=== PATIENT | male | born 1995 | race Two or more races ===

== ENCOUNTER 2020-12-03 09:06 | Emergency (ER) | payer OTHER, SELFPAY ==
--- NOTE | ~2020-12-03 | CT_ITS ---
EXAMINATION: CT ABDOMEN AND PELVIS WITHOUT CONTRAST CLINICAL INFORMATION: Right abdominal and flank pain. COMPARISON: None TECHNIQUE: Multidetector volumetric imaging was performed from the superior aspect of the liver through the pubic symphysis. Sagittal and coronal reformatted images were obtained on the technologist's workstation. No oral or intravenous contrast. This CT examination was performed using dose optimization techniques as appropriate, variously including the following: *Automated exposure control *Adjustment of mA and/or kV according to patient size (this includes techniques or standardized protocols for targeted exams where dose is matched to indication/reason for exam; i.e. extremities or head) *Use of iterative reconstruction technique DLP: 913 mGy-cm FINDINGS: LUNG BASES: Fine linear scar versus disc atelectasis left lateral base. No airspace consolidation or effusion. LIVER, GALLBLADDER, AND BILIARY TREE: The liver is normal in size, shape, and attenuation. No focal hepatic lesion or biliary ductal dilatation is present. The gallbladder is unremarkable with no evidence of radiopaque gallstones, gallbladder wall thickening, or obvious pericholecystic inflammatory changes. PANCREAS: Unremarkable. SPLEEN: Unremarkable. ADRENAL GLANDS: Unremarkable. KIDNEYS AND URETERS: There is borderline fullness right collecting system compared with the left. There is a punctate calculus in region of distal right ureter just proximal to the bladder under 3 mm (series 4 image 652; series 3, image 112). There are no other urinary tract calculi. No perinephric stranding. No left hydronephrosis or hydroureter or calculi. BLADDER: Unremarkable. GASTROINTESTINAL TRACT: No bowel obstruction or inflammatory changes in the bowel. There is moderate stool in the right colon. There is no ascites or fluid collection. Small linear calcification is noted medial to the cecum which may represent appendicoliths in an otherwise nondistended appendix, or benign dystrophic mesenteric calcifications related to prior appendectomy. No inflammatory changes around cecum or distal ileum. ABDOMINAL WALL: No significant hernia is appreciated. LYMPH NODES: 2 small nodes mid right mesentery series 3 image 51, larger 1 cm short axis. No retroperitoneal or pelvic lymphadenopathy. VASCULAR: Unremarkable. PELVIC VISCERA: Unremarkable. OSSEOUS STRUCTURES: Unremarkable. CT/CT abdomen pelvis wo con IMPRESSION: 1. Borderline fullness right renal collecting system. Suspect punctate distal right ureteral calculus under 3 mm just proximal to the bladder. No perinephric stranding. 2. No bowel obstruction or intestinal inflammatory changes. No ascites or fluid collection.
[2020-12-03 10:10] VITALS: BP 100/68; PULSE 67; RESP 17; TEMP 36.6; O2SAT 99; BMI 42.0
[2020-12-03 10:28] LABS: MANUAL DIFF FLAG NO
[2020-12-03 10:30] LABS: Basophils Absolute Auto 0.1 X10*3/uL (0.0-0.2); Basophils Percent Auto 0.6 % (0-2); Eosinophils Absolute Auto 0.1 X10*3/uL (0.0-0.4); Eosinophils Percent Auto 0.7 % (0-4); Hematocrit 43.7 % (42-52); Hemoglobin 14.4 g/dl (14.0-18.0); Imm Gran Abs Auto 0.07 X10*3/uL (0.00-0.03); Imm Gran Pct Auto 0.5 % (0.0-0.4); Lymphocytes Absolute Auto 1.5 X10*3/uL (1.2-4.9); Lymphocytes Percent Auto 11.3 % (20-40); Mean Corpuscular Hemoglobin 28.1 pg (27.0-33.0); Mean Corpuscular Volume 85.4 fL (80-98); Monocytes Absolute Auto 0.5 X10*3/uL (0.1-1.2); Monocytes Percent Auto 3.5 % (2-11); Neutrophils Absolute Auto 11.1 X10*3/uL (2.0-8.3); Neutrophils Percent Auto 83.4 % (45-73); Platelet Count 372 X10*3/uL (160-400); Red Blood Count 5.12 X10*6/uL (4.60-5.80); Red Cell Distribution Width 12.5 % (11.0-16.0); White Blood Count 13.3 X10*3/uL (4.8-10.8)
[2020-12-03 10:40] LABS: Glucose Urine UA NEG (NEG); Leukocyte Esterase Urine NEG (NEG); Nitrite Urine NEG (NEG); PH 5.5 (5.0-8.0); Specific Gravity - Urine >= 1.030 (1.005-1.025); Urine Blood 3+ (NEG); Urine Ketones 5 MG/DL (NEG); Urine Protein TRACE MG/DL (NEG-TRACE)
[2020-12-03 10:45] LABS: Appearance Urine CLOUDY; Color Urine YELLOW
--- NOTE | 2020-12-03 10:52 | ED_ITS ---
HPI - Abdominal Pain General Chief Complaint: Abdominal Pain Stated Complaint: abdominal pain Time Seen by Provider: 12/03/20 10:49 Source: patient Mode of arrival: ambulatory Limitations: no limitations History of Present Illness HPI narrative: 25-year-old male who denies any past medical/surgical history presenting with complaint of states he has had right flank pain since yesterday sharp ends sharp and stabbing like started after he was training for having a bowel movement pain subsided slightly and this morning pain got worse and now is radiating to the right side abdomen and groin area. He went to urgent care but appear uncomfortable was sent here for further evaluation. Admits to nausea but no vomiting or diarrhea, no fever, no recent illness or travel. Denies any prior episodes of similar pain. He did tell the triage nurse that he was having pain radiation to the right groin and testicle region but there is no testicular pain. MD elicited complaint: abdominal pain and flank pain Pertinent past history: none Onset (ago): day(s) Pain Consistency: constant Location: R flank Severity: moderate Quality: stabbing and aching Radiation: other (Right-sided abdomen/groin area) Exacerbating factors: nothing Relieving factors: nothing Associated symptoms: nausea Related Data Previous Rx's Medication Instructions Recorded ibuprofen 800 mg PO Q8H PRN #20 tab 12/03/20 oxycodone 5 mg PO Q8H PRN 3 Days #10 tab 12/03/20 Allergies Allergy/AdvReac Type Severity Reaction Status Date / Time No Known Allergies Allergy Verified 12/03/20 10:54 Review of Systems Review of Systems Constitutional: No Weight loss, No Fever, No Chills, No Night Sweats, No Fatigue, No Malaise ENT/Mouth: No Hearing loss, No Ear Pain, No Nasal Congestion, No Sinus Pain, No Hoarseness, No sore throat, No Rhinorrhea, No Swallowing Difficulty Eyes: No Eye Pain, No Swelling, No Redness, No Foreign Body, No Discharge, No Vision Changes Cardiovascular: No Chest Pain, No SOB, No Dyspnea on Exertion, No Orthopnea, No Edema, No Palpitations Respiratory: No Cough, No Sputum, No Wheezing, No Smoke Exposure, No Dyspnea Gastrointestinal: As noted per HPI, No Hematochezia, No Melena Genitourinary: No Dysuria, No Urinary Frequency, No Hematuria, No Urinary Incontinence, No Urgency, No Flank Pain, No Urinary Flow Changes, No Hesitancy Musculoskeletal: No joint pain, No Myalgias, No Joint Swelling Skin: No Skin Lesions, No rash Neuro: No Weakness, No Numbness, No Paresthesias, No Loss of Consciousness, No Dizziness, No Headache Psych: No Social Issues Heme/Lymph: No Bruising, No Bleeding,No Lymphadenopathy Endocrine: No Polyuria, No Polydipsia, No Temperature Intolerance Yes all other systems are reviewed and are negative Physical Exam Vital Signs: Vital Signs: Last Vital Signs Temp 97.7 F 12/03/20 13:29 Pulse 56 12/03/20 13:29 Resp 18 12/03/20 13:29 BP 105/45 L 12/03/20 13:29 Pulse Ox 97 12/03/20 13:29 Body Mass Index 42.0 Reviewed Const: General: cooperative and in distress (Appears in pain) mild; No intoxicated appearing Nutritional Appearance: obese Orientation/consciousness: patient oriented x3 HENMT: Head: Yes normal to inspection Ears: hearing grossly normal bilaterally Eyes: General: appearance normal, both eyes and all related structures Visual Torres: normal visual torres by confrontation Neck: Neck: Yes normal visual inspection, No positive Brudzinski's sign, No positive Kernig's sign and No tender Thyroid: Thyroid normal Chest: Chest palpation & inspection: normal inspection of the chest Resp: Effort & Inspection: normal respiratory effort Auscultation: clear to auscultation bilaterally Cardio: Jugular venous distension: no JVD Rhythm: regular rhythm Heart sounds: S1 normal heart sound present and S2 normal heart sound present GI: Inspection: Yes normal to inspection Palpation (GI): Soft to palpation, Tenderness to palpation present (GI) (Mildly on the right lower quadrant region) and no guarding Percussion: Yes normal to percussion Auscultation: normal bowel sounds : General: Yes CVA tenderness on the right and diffuse Skin: General skin exam: no rashes or lesions noted Neuro: General: patient oriented x3 Extrem: General: Yes normal to inspection Course Reevaluation(s) Reevaluation #1: 1055 Labs in by triage nurse with leukocytosis with routine UA positive RBC otherwise not infected AP an exam consistent with renal calculi given his large body habit us will get dry CT of his abdomen for better visualization of his kidneys and rule out obstructive pathology. Does appear relatively uncomfortable will treat with IV fluids, antiemetics and Toradol. Reevaluation #2: Findings consistent with 3 mm stone at the distal ureter just proximal to the bladder without over hydro. Had episode of breakthrough pain with Toradol given hydromorphone 0.5 mg did very well with this observed for 1 hour after and has not had any pain. Will discharge home with ibuprofen and oxycodone for breakthrough pain with follow-up with Urology. Mass pat reviewed no concerning pattern. MDM - Abdominal Pain Differential Diagnosis Differential diagnosis: Likely abdominal pain, calculus of kidney and renal coli c; Unlikely aortic dissection, acute appendicitis, bowel perforation, consti pation, diverticulitis, gastroenteritis, gastritis, pancreatitis, peptic ulcer disease and small bowel obstruction Lab Data Result diagrams: 12/03/20 10:24 12/03/20 10:24 Labs: Lab Results 12/03/20 12/03/20 12/03/20 Range/Units 10:24 10:24 10:24 WBC 13.3 H (4.8-10.8) X10*3/uL RBC 5.12 (4.60-5.80) X10*6/uL Hgb 14.4 (14.0-18.0) g/dl Hct 43.7 (42-52) % MCV 85.4 (80-98) fL MCH 28.1 (27.0-33.0) pg MCHC 33.0 (31.0-36.0) g/dl RDW 12.5 (11.0-16.0) % Plt Count 372 (160-400) X10*3/uL MPV 10.0 (9.4-12.4) fL Immature Gran % (Auto) 0.5 H (0.0-0.4) % Neut % (Auto) 83.4 H (45-73) % Lymph % (Auto) 11.3 L (20-40) % [place] % (Auto) 3.5 (2-11) % Eos % (Auto) 0.7 (0-4) % Baso % (Auto) 0.6 (0-2) % Lymph # (Auto) 1.5 (1.2-4.9) X10*3/uL [place] # (Auto) 0.5 (0.1-1.2) X10*3/uL Eos # (Auto) 0.1 (0.0-0.4) X10*3/uL Baso # (Auto) 0.1 (0.0-0.2) X10*3/uL Abs Immat Gran (auto) 0.07 H (0.00-0.03) X10*3/uL Absolute Neuts (auto) 11.1 H (2.0-8.3) X10*3/uL Absolute Nucleated RBC 0.000 (0.0-0.012) X10*3/uL Nucleated RBC % (auto) 0.0 (0.0-0.2) /100WBC Hold Blue Top SEE NOTE Sodium 141 (135-145) mmol/L Potassium 4.5 (3.3-5.1) mmol/L Chloride 105 (96-108) mmol/L Carbon Dioxide 27 (22-29) mmol/L Anion Gap 14 (12-20) BUN 13 (9-16) mg/dL Creatinine 0.92 (0.5-1.4) mg/dL Estim Creat Clear Calc 131.5 Estimated GFR > 60 Random Glucose 112 (60-115) mg/dL Calcium 9.9 (8.4-10.2) mg/dL Total Bilirubin 0.3 (0.0-1.0) mg/dL Direct Bilirubin 0.2 (0.0-0.5) mg/dL AST 18 (5-37) U/L ALT 26 (0-40) U/L Alkaline Phosphatase 70 (39-117) U/L Total Protein 8.0 (6.5-8.0) g/dL Albumin 5.0 (3.5-5.0) g/dL Urine Color Urine Appearance Urine pH (5.0-8.0) Ur Specific Burnham (1.005-1.025) Urine Protein (NEG-TRACE) MG/DL Urine Glucose (UA) (NEG) MG/DL Urine Ketones (NEG) MG/DL Urine Blood (NEG) Urine Nitrite (NEG) Ur Leukocyte Esterase (NEG) Urine RBC (0) /HPF Urine WBC (0-4) /HPF Ur Squamous Epith Cells /LPF Calcium Oxalate Crystal /LPF Amorphous Sediment /LPF Urine Bacteria /LPF Urine Mucus /LPF 12/03/20 Range/Units 10:24 WBC (4.8-10.8) X10*3/uL RBC (4.60-5.80) X10*6/uL Hgb (14.0-18.0) g/dl Hct (42-52) % MCV (80-98) fL MCH (27.0-33.0) pg MCHC (31.0-36.0) g/dl RDW (11.0-16.0) % Plt Count (160-400) X10*3/uL MPV (9.4-12.4) fL Immature Gran % (Auto) (0.0-0.4) % Neut % (Auto) (45-73) % Lymph % (Auto) (20-40) % [place] % (Auto) (2-11) % Eos % (Auto) (0-4) % Baso % (Auto) (0-2) % Lymph # (Auto) (1.2-4.9) X10*3/uL [place] # (Auto) (0.1-1.2) X10*3/uL Eos # (Auto) (0.0-0.4) X10*3/uL Baso # (Auto) (0.0-0.2) X10*3/uL Abs Immat Gran (auto) (0.00-0.03) X10*3/uL Absolute Neuts (auto) (2.0-8.3) X10*3/uL Absolute Nucleated RBC (0.0-0.012) X10*3/uL Nucleated RBC % (auto) (0.0-0.2) /100WBC Hold Blue Top Sodium (135-145) mmol/L Potassium (3.3-5.1) mmol/L Chloride (96-108) mmol/L Carbon Dioxide (22-29) mmol/L Anion Gap (12-20) BUN (9-16) mg/dL Creatinine (0.5-1.4) mg/dL Estim Creat Clear Calc Estimated GFR Random Glucose (60-115) mg/dL Calcium (8.4-10.2) mg/dL Total Bilirubin (0.0-1.0) mg/dL Direct Bilirubin (0.0-0.5) mg/dL AST (5-37) U/L ALT (0-40) U/L Alkaline Phosphatase (39-117) U/L Total Protein (6.5-8.0) g/dL Albumin (3.5-5.0) g/dL Urine Color YELLOW Urine Appearance CLOUDY Urine pH 5.5 (5.0-8.0) Ur Specific Burnham >= 1.030 H (1.005-1.025) Urine Protein TRACE (NEG-TRACE) MG/DL Urine Glucose (UA) NEG (NEG) MG/DL Urine Ketones 5 (NEG) MG/DL Urine Blood 3+ H (NEG) Urine Nitrite NEG (NEG) Ur Leukocyte Esterase NEG (NEG) Urine RBC 15-29 H (0) /HPF Urine WBC 0 (0-4) /HPF Ur Squamous Epith Cells NONE /LPF Calcium Oxalate Crystal 1+ /LPF Amorphous Sediment 2+ /LPF Urine Bacteria NONE /LPF Urine Mucus 1+ /LPF Imaging Data Abdominal/pelvic CT: Radiologist's impression: [address] Scan ReportSigned Patient: Asa Leigh#: [id number]: 1995Acct:[id number]/Sex: 25 / MADM Date: 12/03/20Loc: HO.EDAttending Dr: Ordering Physician: Herberth Montejo NP Date of Service: 12/03/20 Procedure(s): CT abdomen pelvis wo con Accession Number(s): [id number] cc: Herberth Montejo NP~ EXAMINATION: CT ABDOMEN AND PELVIS WITHOUT CONTRAST CLINICAL INFORMATION: Right abdominal and flank pain. COMPARISON: None TECHNIQUE: Multidetector volumetric imaging was performed from the superior aspect of the liver through the pubic symphysis. Sagittal and coronal reformatted images were obtained on the technologist's workstation. No oral or intravenous contrast. This CT examination was performed using dose optimization techniques as appropriate, variously including the following: *Automated exposure control *Adjustment of mA and/or kV according to patient size (this includes techniques or standardized protocols for targeted exams where dose is matched to indication/reason for exam; i.e. extremities or head) *Use of iterative reconstruction technique DLP: 913 mGy-cm FINDINGS: LUNG BASES: Fine linear scar versus disc atelectasis left lateral base. No airspace consolidation or effusion. LIVER, GALLBLADDER, AND BILIARY TREE: The liver is normal in size, shape, and attenuation. No focal hepatic lesion or biliary ductal dilatation is present. The gallbladder is unremarkable with no evidence of radiopaque gallstones, gallbladder wall thickening, or obvious pericholecystic inflammatory changes. PANCREAS: Unremarkable. SPLEEN: Unremarkable. ADRENAL GLANDS: Unremarkable. KIDNEYS AND URETERS: There is borderline fullness right collecting system compared with the left. There is a punctate calculus in region of distal right ureter just proximal to the bladder under 3 mm (series 4 image 652; series 3, image 112). There are no other urinary tract calculi. No perinephric stranding. No left hydronephrosis or hydroureter or calculi. BLADDER: Unremarkable. GASTROINTESTINAL TRACT: No bowel obstruction or inflammatory changes in the bowel. There is moderate stool in the right colon. There is no ascites or fluid collection. Small linear calcification is noted medial to the cecum which may represent appendicoliths in an otherwise nondistended appendix, or benign dystrophic mesenteric calcifications related to prior appendectomy. No inflammatory changes around cecum or distal ileum. ABDOMINAL WALL: No significant hernia is appreciated. LYMPH NODES: 2 small nodes mid right mesentery series 3 image 51, larger 1 cm short axis. No retroperitoneal or pelvic lymphadenopathy. VASCULAR: Unremarkable. PELVIC VISCERA: Unremarkable. OSSEOUS STRUCTURES: Unremarkable. CT/CT abdomen pelvis wo con IMPRESSION: 1. Borderline fullness right renal collecting system. Suspect punctate distal right ureteral calculus under 3 mm just proximal to the bladder. No perinephric stranding. 2. No bowel obstruction or intestinal inflammatory changes. No ascites or fluid collection. Dictated By:KAL VALENCIAigned By:<Electronically signed by KAL VALENCIA MD in OV>12/03/20 1302 DD/ 1055TD/TT: Off Track Betting Manager: CHANDNI Discharge Plan Discharge Clinical Impression: Calculus of kidney Patient Disposition: Home, Self-Care Instructions: Kidney Stones (ED), How to Strain Your Urine (ED) Additional Instructions: Urine small kidney stones that is causing the pain on the right-sided back You should be able to pass this is a small stone (3 mm) Drink plenty of fluids Ibuprofen for [id number] pain as prescribed For severe pain take oxycodone however do not drink alcohol or drive while taking this medication and also this medication has high potential for abuse given his addictive properties. Please only uses for short course. Please follow-up with urologist Dr. Booker as discussed Return if any concerns or worsening symptoms Thank you Prescriptions: New oxycodone 5 mg tablet 5 mg PO Q8H PRN (Reason: pain) 3 Days Qty: 10 RF: 0 ibuprofen 800 mg tablet 800 mg PO Q8H PRN (Reason: pain) Qty: 20 RF: 0 Referrals: Siva Booker MD [Physician] - 1 week Stand Alone Forms: Work/School Release [facility] Social History Social History Alcohol intake: never Smoking Status: Never smoker Use of substances other than those prescribed or required for medical reasons: Yes Substance Use Type: Marijuana Substance Use Frequency: Daily Advance Directives: Yes Advance Directives Information Provided: Yes Advance Directives on File: No
[2020-12-03 11:02] LABS: Anion Gap 14 (12-20); Blood Urea Nitrogen 13 mg/dL (9-16); Calcium 9.9 mg/dL (8.4-10.2); Carbon Dioxide 27 mmol/L (22-29); Chloride 105 mmol/L (96-108); Creatinine Clr Calc Pharmacy 131.5; Estimated Glomerular Filt Rate > 60; Glucose Random 112 mg/dL (60-115); Potassium 4.5 mmol/L (3.3-5.1); Sodium 141 mmol/L (135-145)
[2020-12-03] MEDS: ondansetron HCL 4 MG/2 ML VIAL IVPUSH (11:20)
[2020-12-03] MEDS: Ketorolac Tromethamine 30 MG/ML VIAL IVPUSH (11:20)
[2020-12-03 11:24] VITALS: BP 100/46; PULSE 54; RESP 18; TEMP 36.7; O2SAT 97
--- NOTE | 2020-12-03 11:24 | PC.NURSE ---
patient a&ox3, vss, c/o 03/06 rt flank pain, medicated per order, awaiting radiology for ct scan, will continue to monitor.
[2020-12-03 11:41] LABS: WBC Urine 0 /HPF (0-4)
[2020-12-03 11:42] LABS: Amorphous Sediment Urine 2+ /LPF; Calcium Oxalate Crystals Urine 1+ /LPF; Mucus Urine 1+ /LPF
[2020-12-03 12:17] LABS: Alanine Aminotransferase 26 U/L (0-40); Alkaline Phosphatase 70 U/L (39-117); Aspartate Amino Transferase 18 U/L (5-37); Bilirubin Direct 0.2 mg/dL (0.0-0.5); Bilirubin Total 0.3 mg/dL (0.0-1.0)
[2020-12-03] MEDS: HYDROmorphone HCl 0.5 MG/0.5 ML SYRINGE IVPUSH (13:21)
[2020-12-03 13:29] VITALS: BP 105/45; PULSE 56; RESP 18; TEMP 36.5; O2SAT 97
--- NOTE | 2020-12-03 13:30 | PC.NURSE ---
patient a&ox3, ambulated to bathroom independently, vss, pt medicated for pain per order, will continue to monitor.
== END 2020-12-03 15:31 | disposition home or self-care (01) ==
PROVIDERS: Nurse Practitioner Primary Care; Emergency Provider Emergency Medicine Emergency Medical Services
DX: N20.0 Calculus of kidney (principal); F12.90 Cannabis use, unspecified, uncomplicated
CPT/HCPCS: 36415; 74176; 80048; 80076; 81001; 85025; 96374; 96375; 99284; J1170; J1885; J2405